=== PATIENT | female | born 1955 | race Caucasian/White ===

== ENCOUNTER 2024-07-13 18:30 | Emergency (ER) | payer MEDICARE ==
[~2024-07-13] VITALS: Ht 157.5 cm; Wt 77.1 kg
[~2024-07-13 18:30] MED LIST: AZITHROMYCIN250 MG PO; PREDNISONE20 MG PO; VENTOLIN HFA18 GM INH
[2024-07-13 18:40] VITALS: PULSE 68; RESP 20; TEMP 98.2
[2024-07-13] MEDS ORDERED: VENTOLIN HFA18 GM INH (20:16)
[2024-07-13] MEDS ORDERED: CORICIDIN COLD1 EACH PO (20:17)
[2024-07-13] MEDS ORDERED: AMOXICILLIN500 MG PO (20:18)
[2024-07-13] MEDS: DEXAMETHASONE SOD PHOS INJ 4 MG/ML SDV IM ONE (20:29)
[2024-07-13] MEDS: SODIUM CHLORIDE 0.9% 1000ML 1,000 ML IV ONE (20:32)
[2024-07-13] MEDS: ALBUTEROL/IPRATROPIUM 3 ML NEB NEB ONE (20:33)
[2024-07-13 22:10] VITALS: BP 166/73; PULSE 68; RESP 18; TEMP 98; O2SAT 100
== END 2024-07-13 22:10 | disposition home or self-care (01) ==
LOC: FSED 18:42
DX: R05.9 Cough, unspecified (principal); J06.9 Acute upper respiratory infection, unspecified; J98.01 Acute bronchospasm; E03.9 Hypothyroidism, unspecified; M19.09 Primary osteoarthritis, other specified site; Z11.52 Encounter for screening for COVID-19; R94.31 Abnormal electrocardiogram [ECG] [EKG]
CPT/HCPCS: 0223U; 71046; 80053; 80307; 81003; 83518; 84484; 85025; 85379; 87400; 93005; 96372; 99284; J0696; J1100; J7030